=== PATIENT | male | born 1975 | race Caucasian/White ===

== ENCOUNTER 2018-03-05 22:44 | Observation (INO) ==
[2018-03-05 22:58] LABS: ABG Base Excess -8.6 mmol/L (-2.4-2.3); ABG HCO3 18.6 mmhg (22.0-26.0); ABG Oxygen Saturation 84 % (90-100); ABG PCO2 43.5 mmhg (35.0-45.0); ABG PH 7.25 mmol/L (7.35-7.45); ABG PO2 51.3 mmhg (80-100)
--- NOTE | 2018-03-05 22:59 | Emergency Department Note ---
ED Disposition Clinical Impression: Pneumonitis Heroin poisoning Qualifiers: Encounter type: initial encounter Injury intent: undetermined intent Qualified Code(s): T40.1X4A - Poisoning by heroin, undetermined, initial encounter Disposition: Admitted as Observation Condition on Discharge: Good - Critical Care Critical Care Time: No Attestation: On , the high probability of a clinically significant, sudden or life threatening deterioration of the following system(s) required my full and direct attention, intervention and personal management. The time I documented below is in addition to time spent performing reported procedures but includes the following listed in this critical care notation. Medical Decision Making - Medical Records Medical records reviewed: Yes: I reviewed the patient's medical records. - Minh Inquiry Pt receiving controlled substance: No Vital Signs: 03/05/18 22:47 03/05/18 23:28 03/05/18 23:45 Temperature Temperature Source Pulse Rate [Right Radial] 151 H 128 H 128 H Respiratory Rate 24 28 H Blood Pressure [Right Arm] 127/105 161/80 161/80 Blood Pressure Mean [Right Arm] 112 107 107 Blood Pressure Source [Right Arm] Automatic Cuff Automatic Cuff Automatic Cuff Blood Pressure Position [Right Arm] Sitting Sitting Sitting 02 Sat by Pulse Oximetry 81 L 95 92 L Oxygen Delivery Method Room Air Non-Rebreather Oxygen Flow Rate (LPM) 03/06/18 00:03 03/06/18 01:14 03/06/18 02:11 Temperature 99.5 F Temperature Source Oral Pulse Rate [Right Radial] 123 H 119 H 113 H Respiratory Rate 23 Blood Pressure [Right Arm] 118/61 110/62 142/79 Blood Pressure Mean [Right Arm] 80 78 100 Blood Pressure Source [Right Arm] Automatic Cuff Automatic Cuff Automatic Cuff Blood Pressure Position [Right Arm] Sitting Sitting Sitting 02 Sat by Pulse Oximetry 99 97 94 L Oxygen Delivery Method Non-Rebreather Non-Rebreather Non-Rebreather Oxygen Flow Rate (LPM) 10 10 10 03/06/18 03:47 03/06/18 04:12 Temperature Temperature Source Oral Pulse Rate [Right Radial] 102 H 98 H Respiratory Rate 21 20 Blood Pressure [Right Arm] 123/75 115/86 Blood Pressure Mean [Right Arm] 91 95 Blood Pressure Source [Right Arm] Automatic Cuff Automatic Cuff Blood Pressure Position [Right Arm] Sitting Sitting 02 Sat by Pulse Oximetry 99 99 Oxygen Delivery Method Non-Rebreather Non-Rebreather Oxygen Flow Rate (LPM) 10 10 - Lab Data Lab results reviewed: Yes: I reviewed the patient's lab results. Lab Results 03/05/18 22:54: Specimen Source Right radial, O2 % 100%, ABG pH 7.33 L, ABG pCO2 44.1, ABG pO2 68.7 L, ABG HCO3 22.7, ABG Total CO2 24.0, ABG O2 Saturation 94, ABG Base Excess -3.3 L, Abdirahman Test Acceptable 03/05/18 22:55: Specimen Source Right radial, O2 % 7lpm neb, ABG pH 7.25 L, ABG pCO2 43.5, ABG pO2 51.3 L, ABG HCO3 18.6 L, ABG Total CO2 20.0 L, ABG O2 Saturation 84 L*, ABG Base Excess -8.6 L, Abdirahman Test Patient unable 03/05/18 23:18: WBC 9.8, RBC 4.71, Hgb 14.7, Hct 45.5, MCV 96.4 H, MCH 31.2, MCHC 32.3, RDW 12.6, Plt Count 200, MPV 8.4, Neut % (Auto) 76.8, Lymph % (Auto) 16.7, [place] % (Auto) 5.2, Eos % (Auto) 0.9, Baso % (Auto) 0.3, Neut # (Auto) 7.5 , Lymph # (Auto) 1.6, [place] # (Auto) 0.5, Eos # (Auto) 0.1, Baso # (Auto) 0.0 03/05/18 23:18: Sodium 143, Potassium 4.2, Chloride 106, Carbon Dioxide 28, Anion Gap 13.2, BUN 13, Creatinine 1.29, Estimated Creat Clear 92, Estimated GFR 61, Est GFR ( Amer) 74, Glucose 191 H, Calcium 7.4 L, Total Bilirubin 0.3, AST 27, ALT 38, Alkaline Phosphatase 57, Total Creatine Kinase 267, CK-MB (CK-2) 1.0, CK-MB (CK-2) Rel Index 0.4, Troponin I < 0.02, Total Protein 6.2 L, Albumin 3.3 L, Globulin 2.9, Albumin/Globulin Ratio 1.1, Plasma/ Serum Alcohol 0 03/06/18 02:00: Urine Color Yellow, Urine Appearance Clear, Urine pH 5.5, Ur Specific [place] >= 1.030, Urine Protein Trace, Urine Glucose (UA) Negative, Urine Ketones Negative, Urine Blood Negative, Urine Nitrate Negative, Urine Bilirubin Negative, Urine Urobilinogen 0.2, Ur Leukocyte Esterase Negative, Amorphous Sediment Trace 03/06/18 02:00: Urine Opiates Screen Positive H, Ur Barbituates Screen Negative , Ur Phencyclidine Scrn Negative, Ur Amphetamines Screen Negative, U Methamphetamines Scrn Negative, U Benzodiazepines Scrn Positive H, Urine Cocaine Screen Negative, U Marijuana (THC) Screen Negative 03/06/18 03:30: Lactic Acid 0.7 Result diagrams: 03/05/18 23:18 03/05/18 23:18 Orders (Tests/Meds): ED MEDICATIONS Generic Name Dose Route Start Last Admin Trade Name Freq PRN Reason Stop Dose Admin Ceftriaxone Sodium 1 gm/ 50 mls @ 100 mls/hr 03/06/18 03:15 03/06/18 03:35 Sodium Chloride IV 03/20/18 03:14 100 mls/hr Q24H TAY Administration Protocol Discontinued Medications Generic Name Dose Route Start Last Admin Trade Name Freq PRN Reason Stop Dose Admin Albuterol/Ipratropium 3 ml 03/05/18 22:54 03/05/18 22:58 Duoneb 3ml Neb IH 03/05/18 22:55 3 ml ONCE ONE Administration Sodium Chloride 1,000 mls @ 999 mls/hr 03/05/18 22:55 03/05/18 23:33 Sod Chlor 0.9% 1000ml Bag IV 03/05/18 23:55 999 mls/hr .Q1H1M TAY Administration Sodium Chloride 1,000 mls @ 999 mls/hr 03/06/18 01:15 03/06/18 01:09 Sod Chlor 0.9% 1000ml Bag IV 03/06/18 02:15 999 mls/hr .Q1H1M TAY Administration Clindamycin Phosphate 900 mg/ 106 mls @ 106 mls/hr 03/06/18 03:16 03/06/18 03 :47 Sodium Chloride IV 03/06/18 03:17 106 mls/hr ONCE ONE Administration Protocol Methylprednisolone Sodium Succinate 125 mg 03/05/18 22:54 03/05/18 22:58 Solu-Medrol 125mg/2ml Vial IV 03/05/18 22:55 125 mg ONCE ONE Administration Naloxone HCl 2 mg 03/05/18 23:14 03/05/18 23:21 Narcan 2mg/2ml Syringe IV 03/05/18 23:15 2 mg ONCE ONE Administration Naloxone HCl 2 mg 03/06/18 00:03 03/06/18 00:05 Narcan 2mg/2ml Syringe IV 03/06/18 00:04 2 mg ONCE ONE Administration ORDERS Category Date Time Status CXR --portable [XR chest portable] Stat Exams 03/05/18 22:57 Taken Blood Culture Stat Micro 03/06/18 03:30 Received Sputum Culture & Gram Stain Stat Micro 03/06/18 03:15 Ordered ABG [Arterial Blood Gas] Stat RT 03/05/18 22:57 Ordered ECG Request by /Jairo Stat Y 03/05/18 22:54 Ordered - Radiology Data #1 Image(s): Chest Image Reviewed: Yes I reviewed the patient's radiology image Preliminary Findings: Abnormal (pneumonitis) - ECG Data Tracing #1 I reviewed this ECG and interpreted as documented below: Arrhythmias present: sinus tach Ischemic changes: non-specific ST-T wave changes - Physician Consults Physician Consulted: samson Reason -: Admission Overdose HPI - General Chief Complaint: Overdose Stated Complaint: aspiration Time Seen by Provider: 03/05/18 22:55 Mode of Arrival: EMS Source of Information: Patient, EMS, Medical Record Limitations: No Limitations Description of Symptoms (Recalled from ER Triage Doc. by RN): It was reported that pt. reported Heroin and was found on the side walk unresponsive and laying in vomit - History of Present Illness HPI Narrative: pt with heroin use and found with vomitus - pt admitted to heroin - pt with congestion MD complaint: intentional overdose Onset (ago): hour(s) Intent: other (drug abuse) Context: Accidental Overdose: wanted to get high - Related Data Home Medications Medication Instructions Recorded Confirmed No Known Home Medications [No 03/05/18 03/05/18 Known Home Medications] Allergies Allergy/AdvReac Type Severity Reaction Status Date / Time No Known Allergies Allergy Verified 03/05/18 22:53 [facility] History I have reviewed the patient's past medical history: Yes - Social History Smoking Status: Current every day smoker Tobacco Type: cigarettes Alcohol Intake: current Alcohol Intake Frequency:: a few times a week Substance Use Type: heroin Last Used Substance: just [employer] - Psychiatric History Expresses thoughts of harming self/others: None Suicide Plan Description: No Plan ROS Obtained: Yes unobtainable due to mental status Physical Exam - General General appearance: in no apparent distress, lethargic - Head Head exam: normocephalic - Eye Eye exam: Present: PERRL, EOMI. Absent: scleral icterus - ENT ENT exam: Present: mucous membranes dry - Neck Neck exam: Present: trachea midline - Respiratory Respiratory exam: Present: other (bilat rhonchi). Absent: respiratory distress - Cardiovascular Cardiovascular exam: Present: regular rate, systolic murmur. Absent: rubs, gallop - Abdominal Exam Abdominal exam: Present: soft - Extremities Exam Extremities exam: Absent: calf tenderness - Neurological Exam Neurological exam: Present: alert, oriented X3, CN II-XII intact - Skin Skin exam: Absent: rash Procedures - ABG Interpretation ABG Interpretation 1 ABG Results: 03/05/18 03/05/18 22:54 22:55 ABG pH 7.33 L 7.25 L ABG pCO2 44.1 43.5 ABG pO2 68.7 L 51.3 L ABG HCO3 22.7 18.6 L ABG Total CO2 24.0 20.0 L ABG O2 Saturation 94 84 L* ABG Base Excess -3.3 L -8.6 L Interpretation: abnormal, respiratory acidosis
[2018-03-05 23:00] LABS: Allen's Test Patient Unable; Oxygen 7LPM NEB %
[2018-03-05 23:25] LABS: Basophils % 0.3 % (0.1-2.0); Eosinophils # 0.1 K/mm3 (0.0-0.4); Eosinophils % 0.9 % (0.1-12.0); Hematocrit 45.5 % (42.0-52.0); Hemoglobin 14.7 g/dL (14.1-18.0); Lymphocytes # 1.6 K/mm3 (0.7-4.5); Lymphocytes % 16.7 K/mm3 (10-50); Mean Corpuscular HGB Conc 32.3 g/dL (31.8-35.4); Mean Corpuscular Hemoglobin 31.2 pg (27.0-31.2); Mean Corpuscular Volume 96.4 fl (80-94); Mean Platelet Volume 8.4 fl (7.4-10.4); Monocytes # 0.5 K/mm3 (0.1-1.0); Monocytes % 5.2 % (1.7-9.3); Neutrophils # 7.5 K/mm3 (1.8-7.8); Neutrophils % 76.8 % (37.0-80.0); Platelet Count 200 K/mm3 (142-424); Red Blood Count 4.71 M/mm3 (4.60-6.20); Red Cell Distribution Width 12.6 % (11.5-17.5); White Blood Count 9.8 K/mm3 (4.8-10.8)
[2018-03-05 23:43] LABS: ABG Base Excess -3.3 mmol/L (-2.4-2.3); ABG HCO3 22.7 mmhg (22.0-26.0); ABG Oxygen Saturation 94 % (90-100); ABG PCO2 44.1 mmhg (35.0-45.0); ABG PH 7.33 mmol/L (7.35-7.45); ABG PO2 68.7 mmhg (80-100)
[2018-03-05 23:45] LABS: Allen's Test Acceptable; Oxygen 100% %
[2018-03-05 23:50] LABS: Alanine Aminotransferase 38 U/L (12-78); Albumin Level 3.3 gm/dL (3.4-5.0); Albumin/Globulin Ratio 1.1 (1.1-1.8); Alkaline Phosphatase 57 U/L (46-116); Anion Gap 13.2 mEq/L (5-15); Aspartate Amino Transferase 27 U/L (15-37); Bilirubin,Total 0.3 mg/dL (0.2-1.0); Blood Urea Nitrogen 13 mg/dL (7-18); Calcium 7.4 mg/dL (8.5-10.1); Carbon Dioxide 28 mmol/L (21.0-32.0); Chloride 106 mmol/L (98-107); Creatine Kinase 267 U/L (39-308); Globulin 2.9 gm/dl (1.3-3.2); Glucose 191 mg/dL (74-106); Potassium 4.2 mmoL/L (3.5-5.1); Sodium 143 mmol/L (136-145); Total Protein,Serum 6.2 gm/dL (6.4-8.2)
[2018-03-05 23:52] LABS: Ethyl Alcohol 0 mg/dL (0-99)
[2018-03-06 02:09] LABS: Microscopic, Urine URINE MICROSCOPIC (MICROSCOPIC)
[2018-03-06 02:24] LABS: Appearance,Urine CLEAR (Clear); Bilirubin,Urine Negative (Negative); Blood, Urine Negative (Negative); Color,Urine YELLOW (Yellow); Glucose,Urine (UA) Negative (Negative); Ketones,Urine Negative (Negative); Leukocyte Esterase,Urine Negative (Negative); PH,Urine 5.5 (5.0-8.5); Protein,Urine TRACE (Negative); Specific Gravity, Urine >= 1.030 (1.005-1.030); Urobilinogen,Urine 0.2 EU/dl (0.2)
[2018-03-06 02:29] LABS: Amorphous Sediment,Urine Trace /lpf
[2018-03-06 02:30] LABS: Amphetamine/Metha Screen,Urine Negative ng/mL (<1000); Barbiturates Screen,Urine Negative ng/mL (<200); Benzodiazepines Screen,Urine Positive ng/mL (200); Cannabinoid Screen,Urine Negative ng/mL (<50); Cocaine Screen,Urine Negative ng/g (<300); Methadone Screen,Urine Negative ng/mL (<300); Opiate Screen,Urine Positive ng/mL (<300); Phencyclidine Screen,Urine Negative ng/mL (<25)
[2018-03-06 05:44] LABS: Basophils % 0.1 % (0.1-2.0); Eosinophils # 0.2 K/mm3 (0.0-0.4); Eosinophils % 1.6 % (0.1-12.0); Hematocrit 45.1 % (42.0-52.0); Hemoglobin 14.8 g/dL (14.1-18.0); Lymphocytes # 0.7 K/mm3 (0.7-4.5); Lymphocytes % 6.8 K/mm3 (10-50); Mean Corpuscular HGB Conc 32.8 g/dL (31.8-35.4); Mean Corpuscular Hemoglobin 31.2 pg (27.0-31.2); Mean Corpuscular Volume 95.1 fl (80-94); Mean Platelet Volume 8.7 fl (7.4-10.4); Monocytes # 0.5 K/mm3 (0.1-1.0); Monocytes % 4.9 % (1.7-9.3); Neutrophils # 8.5 K/mm3 (1.8-7.8); Neutrophils % 86.5 % (37.0-80.0); Platelet Count 189 K/mm3 (142-424); Red Blood Count 4.74 M/mm3 (4.60-6.20); Red Cell Distribution Width 12.5 % (11.5-17.5); White Blood Count 9.9 K/mm3 (4.8-10.8)
[2018-03-06 06:04] LABS: Lymphocytes % 7 % (10-50); Neutrophils % 80 % (42-76); RBC Morphology Normal; Total Cells Counted 100
--- NOTE | 2018-03-06 07:59 | History & Physical Report ---
*Admission Date: 03/06/18 *Chief complaint: Vomiting/heroin overdose *History of present illness: 42-year-old white male, no significant past medical history other than apparent heroin use who apparently suffered a heroin overdose in [place] yesterday evening, and had significant vomiting and obtundation. Brought by EMS to the emergency department. Workup ensued, showing fairly normal lab values, good response to naloxone but coughing, hypoxia and shadows on chest x-ray consistent with aspiration pneumonitis. Admitted overnight. This morning patient's more responsive, able to give his name and town of residence, continues to feel bad and is coughing up green sputum. [facility] History I have reviewed the patient's past medical history: No (History unavailable from patient) - *Social History Educational Level: Completed High School Smoking Status: Current every day smoker Tobacco Type: cigarettes Alcohol Intake: never Alcohol Intake Frequency:: 0-2 drinks per day Substance Use Type: heroin, opiates Last Used Substance: hours (ago) Occupational Status: unemployed - Psychiatric History Expresses thoughts of harming self/others: None Suicide Plan Description: No Plan *Family Hx:: Unable to obtain Review of Systems - Review of Systems Review of systems:: unable to obtain Meds Home Medications Medication Instructions Recorded Confirmed Type No Known Home Medications [No 03/05/18 03/06/18 History Known Home Medications] Allergies Allergy/AdvReac Type Severity Reaction Status Date / Time No Known Allergies Allergy Verified 03/05/18 22:53 Exam Vital signs and Labs for Last 24 Hours: Temp Pulse Resp BP Pulse Ox 100.1 F H 118 H 24 109/62 97 03/06/18 06:33 03/06/18 06:33 03/06/18 06:33 03/06/18 06:33 03/06/18 06:33 I & O for Last 24 hours: Intake & Output 03/03/18 03/04/18 03/05/18 03/06/18 11:59 11:59 11:59 11:59 Weight 199 lb 4 oz Narrative: Patient overall appears well formed and well nourished. ENT exam shows that he has poor dentition. Coughing up some green sputum. Lungs have rhonchi and diminished air movement in both lung zhong in the bases , when he is arousable and takes a deep breath he does have some rhonchi and crackles bilaterally. Heart rate is regular. Abdomen soft. Skin, other than some homemade tattoos and needle marquez is intact without rashes. Assessment and Plan (1) Heroin poisoning Current visit: Yes Status: Acute Qualifiers: Encounter type: initial encounter Injury intent: undetermined intent Qualified Code(s): T40.1X4A - Poisoning by heroin, undetermined, initial encounter Category: Medical Code(s): T40.1X4A - Poisoning by heroin, undetermined, initial encounter (2) Pneumonitis Current visit: Yes Status: Acute Category: Medical Code(s): J18.9 - Pneumonia, unspecified organism - Assessment and plan all Dx Assessment and Plan for all problems:: Agree with admission, continue to watch respiratory parameters. Clindamycin for possible aspiration issues, ceftriaxone as well. Await sputum cultures.
--- NOTE | 2018-03-06 12:58 | Pharmacy Consult Notes ---
[facility] Pharmacy VTE Monitoring - Patient Demographics Admission date: 03/06/18 Report Date: 03/06/18 Time: 12:58 Allergies/Adverse Reactions: Patient Allergies No Known Allergies Allergy (Verified 03/05/18 22:53) Height: 1.78 m Weight: 90.378 kg Patient Problems: Current Active Problems Heroin poisoning (Acute) Pneumonitis (Acute) - VTE Risk Labs: VTE Related Lab Results Hgb 14.8 g/dL (14.1-18.0) 03/06/18 05:35 Hct 45.1 % (42.0-52.0) 03/06/18 05:35 Plt Count 189 K/mm3 (142-424) 03/06/18 05:35 BUN 13 mg/dL (7-18) 03/06/18 05:35 Creatinine 0.92 mg/dL (0.70-1.30) D 03/06/18 05:35 Estimated Creat Clear 129 mL/min (0-300) 03/06/18 05:35 VTE Risk Level: Low Risk - Prophylaxis VTE Prophylaxis Ordered?: Yes Types of VTE Prophylaxis: TEDS Knee High Location of Applied Device: Bilateral Lower Extremeties
[2018-03-07 06:59] LABS: Basophils % 0.3 % (0.1-2.0); Eosinophils % 0.4 % (0.1-12.0); Hematocrit 38.5 % (42.0-52.0); Hemoglobin 12.8 g/dL (14.1-18.0); Lymphocytes # 1.7 K/mm3 (0.7-4.5); Lymphocytes % 22.4 K/mm3 (10-50); Mean Corpuscular HGB Conc 33.2 g/dL (31.8-35.4); Mean Corpuscular Hemoglobin 31.7 pg (27.0-31.2); Mean Corpuscular Volume 95.4 fl (80-94); Mean Platelet Volume 8.8 fl (7.4-10.4); Monocytes # 0.6 K/mm3 (0.1-1.0); Monocytes % 7.4 % (1.7-9.3); Neutrophils # 5.2 K/mm3 (1.8-7.8); Neutrophils % 69.6 % (37.0-80.0); Platelet Count 163 K/mm3 (142-424); Red Blood Count 4.03 M/mm3 (4.60-6.20); Red Cell Distribution Width 12.4 % (11.5-17.5); White Blood Count 7.5 K/mm3 (4.8-10.8)
[2018-03-07 07:10] LABS: Albumin Level 2.6 gm/dL (3.4-5.0); Albumin/Globulin Ratio 0.9 (1.1-1.8); Anion Gap 11.1 mEq/L (5-15); Bilirubin,Total 0.6 mg/dL (0.2-1.0); Calcium 7.9 mg/dL (8.5-10.1); Potassium 4.1 mmoL/L (3.5-5.1); Total Protein,Serum 5.6 gm/dL (6.4-8.2)
--- NOTE | 2018-03-07 07:47 | Progress Note ---
Internal Medicine - PN: Subj *Date: 03/07/18 *Time: 07:46 Interval history: Patient is more alert than yesterday's exam, responsive and full sentences. Continues to be somewhat sleepy. Exam Vital signs and Labs for Last 24 Hours: Temp Pulse Resp BP Pulse Ox 99.9 F H 120 H 20 129/68 91 L 03/07/18 07:43 03/07/18 07:43 03/07/18 07:43 03/07/18 07:43 03/07/18 07:43 Laboratory Results - last 24 hr 03/06/18 08:10: Troponin I 0.03 03/06/18 11:05: Troponin I < 0.02 03/07/18 06:20: WBC 7.5, RBC 4.03 L, Hgb 12.8 L, Hct 38.5 L, MCV 95.4 H, MCH 31.7 H, MCHC 33.2, RDW 12.4, Plt Count 163, MPV 8.8, Neut % (Auto) 69.6, Lymph % (Auto) 22.4, [place] % (Auto) 7.4, Eos % (Auto) 0.4, Baso % (Auto) 0.3, Neut # ( Auto) 5.2, Lymph # (Auto) 1.7, [place] # (Auto) 0.6, Eos # (Auto) 0.0, Baso # (Auto ) 0.0 03/07/18 06:20: Sodium 140, Potassium 4.1, Chloride 107, Carbon Dioxide 26, Anion Gap 11.1, BUN 13, Creatinine 0.97, Estimated Creat Clear 128, Estimated GFR 85, Est GFR ( Amer) 103, Glucose 91, Calcium 7.9 L, Total Bilirubin 0.6, AST 25, ALT 28 D, Alkaline Phosphatase 33 L, Total Protein 5.6 L, Albumin 2.6 L D, Globulin 3.0, Albumin/Globulin Ratio 0.9 L I & O for Last 24 hours: Intake & Output 03/04/18 03/05/18 03/06/18 03/07/18 11:59 11:59 11:59 11:59 Intake Total 3153 / 3153 Output Total 300 / 300 1600 / 1600 Balance -300 / -300 1553 / 1553 Weight 199 lb 4 oz 199 lb 4 oz Narrative: Patient is more alert, lungs are clear, heart rate regular. Abdomen is soft. Still coughing up some sputum. Neurologic exam is otherwise nonfocal except for mild sleepiness but he is oriented once he wakes up. Assessment and Plan (1) Heroin poisoning Current visit: Yes Status: Acute Qualifiers: Encounter type: initial encounter Injury intent: undetermined intent Qualified Code(s): T40.1X4A - Poisoning by heroin, undetermined, initial encounter Category: Medical Code(s): T40.1X4A - Poisoning by heroin, undetermined, initial encounter (2) Pneumonitis Current visit: Yes Status: Acute Category: Medical Code(s): J18.9 - Pneumonia, unspecified organism - Assessment and plan all Dx Assessment and Plan for all problems:: Overall improving. We will have him up in a chair today, eat his meals while upright, try to get a sputum culture.
[2018-03-07 17:53] LABS: ABG Base Excess -5.1 mmol/L (-2.4-2.3); ABG Oxygen Saturation 99 % (90-100); ABG PCO2 34.9 mmhg (35.0-45.0); ABG PH 7.38 mmol/L (7.35-7.45); ABG PO2 216.7 mmhg (80-100); ABG TCO2 21.1 mmhg (23-27)
--- NOTE | 2018-03-07 17:53 | Progress Note ---
Acute Rapid Response Note - Subjective Provider Note: Rapid response read called on the patient who was found apneic and cyanotic. Upon my arrival bag valve mask ventilations are being provided. Color has improved and pulse ox is in the low 90s. He has a good strong carotid pulse at a normal rate, but very brief dyspneic with agonal respirations. Pupils are constricted. Narcan 2 mg administered with immediate resolution of consciousness. Patient had been admitted for an overdose. He now admits to using heroin, snorting it, in the hospital prior to this event. [facility] staff found white substance, powder, apparently heroin, found folded up in a dollar bill in his wallet. - Objective Findings: Vital Signs - Last 4 Hours Temperature 98.1 F 03/07/18 16:00 Temperature Source Oral 03/07/18 16:00 Pulse Rate 109 H 03/07/18 16:00 Respiratory Rate 18 03/07/18 16:00 Blood Pressure 135/74 03/07/18 16:00 Blood Pressure Mean 94 03/07/18 16:00 Blood Pressure Source Automatic Cuff 03/07/18 16:00 Blood Pressure Position Supine 03/07/18 16:00 02 Sat by Pulse Oximetry 90 L 03/07/18 16:00 Oxygen Delivery Method 03/07/18 16:00 Oxygen Flow Rate (LPM) 2 03/07/18 16:00 Lab Results for Past 12 Hours 03/07/18 06:20: Sodium 140, Potassium 4.1, Chloride 107, Carbon Dioxide 26, Anion Gap 11.1, BUN 13, Creatinine 0.97, Estimated Creat Clear 128, Estimated GFR 85, Est GFR ( Amer) 103, Glucose 91, Calcium 7.9 L, Total Bilirubin 0.6, AST 25, ALT 28 D, Alkaline Phosphatase 33 L, Total Protein 5.6 L, Albumin 2.6 L D, Globulin 3.0, Albumin/Globulin Ratio 0.9 L 03/07/18 06:20: WBC 7.5, RBC 4.03 L, Hgb 12.8 L, Hct 38.5 L, MCV 95.4 H, MCH 31.7 H, MCHC 33.2, RDW 12.4, Plt Count 163, MPV 8.8, Neut % (Auto) 69.6, Lymph % (Auto) 22.4, [place] % (Auto) 7.4, Eos % (Auto) 0.4, Baso % (Auto) 0.3, Neut # ( Auto) 5.2, Lymph # (Auto) 1.7, [place] # (Auto) 0.6, Eos # (Auto) 0.0, Baso # (Auto ) 0.0 Rapid Response Exam - General General appearance: in no apparent distress, lethargic
--- NOTE | 2018-03-08 08:28 | Discharge Summary ---
General - General Admission date: 03/06/18 Discharge date: 03/08/18 HPI HPI: 42-year-old white male, no significant past medical history other than apparent heroin use who apparently suffered a heroin overdose in [place] yesterday evening, and had significant vomiting and obtundation. Brought by EMS to the emergency department. Workup ensued, showing fairly normal lab values, good response to naloxone but coughing, hypoxia and shadows on chest x-ray consistent with aspiration pneumonitis. Admitted overnight. This morning patient's more responsive, able to give his name and town of residence, continues to feel bad and is coughing up green sputum. Hospital Course Hospital Course: Patient was admitted. Narcan was given a couple of times and he improved. Found to have pneumonia on chest x-ray and had sputum production but we were unable to give a sample. The next night after admission patient was found in his room to be snorting heroin that was rolled up in dollar bills in his wallet. This occasioned another round of Narcan. This morning patient is improved from this, and I had another long talk with him about his drug use. He is unwilling to do rehab, and wishes to go home. His oxygenation is improved with room air saturations of 89% and he is active and moving her room. He threatens that he will leave [facility] unless he is discharged. At this point he is in a very unfortunate situation but is currently not a danger to others and can be safely discharged. His prognosis to resume drug use is extremely poor. Objective Vital signs: Temp Pulse Resp BP Pulse Ox 99.7 F H 95 H 22 104/54 99 03/08/18 07:34 03/08/18 07:34 03/08/18 07:34 03/08/18 07:34 03/08/18 07:34 Narrative: Patient is awake, alert, responsive. Abdomen soft, lungs are clear except for some rhonchi but much clearer than admission. No edema noted. No skin rash. Results Labs on day of discharge: Labs from last 24 hours 03/07/18 17:52 ABG pH 7.38 ABG pCO2 34.9 L ABG pO2 216.7 H ABG HCO3 20.0 L ABG Total CO2 21.1 L ABG O2 Saturation 99 ABG Base Excess -5.1 L DS: Diagnosis - Discharge Diagnosis (1) Heroin poisoning Status: Acute (2) Pneumonitis Status: Acute Discharge Plan - Patient Discharge Instructions ACTIVITY: Continue current activity DIET: continue same diet - Follow up Plan Disposition: Home, Self-Senior Care Medications: Home Medications Medication Instructions Recorded Confirmed Type No Known Home Medications [No 03/05/18 03/06/18 History Known Home Medications] Prescriptions/Medication Reconciliation: New Cefdinir [Omnicef 300mg Capsule] 300 mg PO BID #20 cap No Action No Known Home Medications [No Known Home Medications]
== END 2018-03-08 12:58 | disposition home or self-care (01) ==
LOC: 2ND 22:44 → ER 22:44 → OBSVTOIN 03-06 06:00 → INTOOBSV 03-06 06:00 → 2ND 03-06 06:02
PROVIDERS: ADMIT Internal Medicine Adolescent Medicine; ATTEND Internal Medicine Adolescent Medicine